=== PATIENT | male | born 1990 | race Caucasian/White ===

== ENCOUNTER 2017-03-08 10:18 | Emergency (ER) | payer MEDICAID, OTHER ==
[~2017-03-08] VITALS: Ht 182.9 cm; Wt 95.3 kg
[2017-03-08 10:24] VITALS: BP 128/67
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
[2017-03-08 11:46] VITALS: BP 128/67
== END 2017-03-08 11:46 | disposition home or self-care (01) ==
LOC: MED 10:18
DX: S46.911A Strain of unspecified muscle, fascia and tendon at shoulder and upper arm level, right arm, initial encounter (principal); Z88.0 Allergy status to penicillin; Z88.6 Allergy status to analgesic agent; X58.XXXA Exposure to other specified factors, initial encounter; Y93.89 Activity, other specified; Y92.89 Other specified places as the place of occurrence of the external cause; Y99.0 Civilian activity done for income or pay
CPT/HCPCS: 73030; 99284